=== PATIENT | male | born 1970 | race Caucasian/White ===

== ENCOUNTER 2018-02-16 16:55 | Emergency (ER) | payer OTHER ==
[~2018-02-16] VITALS: Ht 180.3 cm; Wt 79.4 kg
[~2018-02-16 16:55] MED LIST: AZIT250 PO; Bactrim Ds Tab1 EACH PO; CODGUAEL PO; EPIN.3I IM; Epipen0.3 MG/0.3 IM; HYDACE5 PO; IBUP400 PO; IBUP800 PO; METPRE4DP PO; Norco 5-325 Ta1 EACH PO; Pepcid20 MG PO; Pepcid40 MG PO; Percocet 5-3251 EACH PO; Prednisone20 MG PO; Prednisone50 MG PO; Zithromax250 MG PO
[2018-02-16] MEDS ORDERED: CYCL10 PO (18:42)
[2018-02-16] MEDS ORDERED: Norco 5-325 Ta1 EACH PO (18:42)
[2018-02-16] MEDS ORDERED: IBUP600 PO (18:42)
== END 2018-02-16 18:55 | disposition home or self-care (01) ==
LOC: ER 16:55
DX: M54.32 Sciatica, left side (principal); Z91.030 Bee allergy status; Z87.891 Personal history of nicotine dependence
CPT/HCPCS: 73502; 96372; 99283-25; J1170; J1885

== ENCOUNTER 2018-06-14 14:22 | Emergency (ER) | payer OTHER ==
[~2018-06-14] VITALS: Ht 170.2 cm; Wt 77.1 kg
[~2018-06-14 14:22] MED LIST changes: +CYCL10 PO; +IBUP600 PO
== END 2018-06-14 17:28 | disposition home or self-care (01) ==
LOC: ER 14:22
DX: S81.832A Puncture wound without foreign body, left lower leg, initial encounter (principal); W22.8XXA Striking against or struck by other objects, initial encounter; Y99.0 Civilian activity done for income or pay; Z91.030 Bee allergy status; Z79.899 Other long term (current) drug therapy; Z87.891 Personal history of nicotine dependence
CPT/HCPCS: 12001; 73590; 76882; 99284-25; A9270-GY

== ENCOUNTER 2019-07-04 17:55 | Emergency (ER) | payer OTHER ==
[~2019-07-04] VITALS: Ht 180.3 cm; Wt 83.9 kg
[2019-07-04] MEDS ORDERED: IBUP400 PO (19:37)
[2019-07-04] MEDS ORDERED: Cephalexin500 MG PO (19:37)
== END 2019-07-04 19:58 | disposition home or self-care (01) ==
LOC: ER 17:55
DX: L03.012 Cellulitis of left finger (principal); Z91.030 Bee allergy status; Z87.891 Personal history of nicotine dependence
CPT/HCPCS: 73140; 96372-59; 99283-25; J0690

== ENCOUNTER 2019-09-23 01:29 | Emergency (ER) | payer OTHER ==
[~2019-09-23] VITALS: Ht 180.3 cm; Wt 77.1 kg
[~2019-09-23 01:29] MED LIST changes: +Cephalexin500 MG PO
[2019-09-23 01:51] LABS: BASOPHILS ABSOLUTE AUTO 0.03 K/mm3 (0.00-0.23); BASOPHILS PERCENT AUTO 0 % (0-2); EOSINOPHILS ABSOLUTE AUTO 0.11 K/mm3 (0.00-0.68); EOSINOPHILS PERCENT AUTO 2 % (0-6); Hematocrit 43.6 % (37.0-53.0); Hemoglobin 15.1 g/dL (13.5-17.5); IMMATURE GRAN ABSOLUTE AUTO 0.02 K/mm3 (0.00-0.10); IMMATURE GRAN PERCENT AUTO 0 % (0-1); LYMPHOCYTES ABSOLUTE AUTO 1.53 K/mm3 (0.84-5.20); LYMPHOCYTES PERCENT AUTO 22 % (21-46); MONOCYTES ABSOLUTE AUTO 0.64 K/mm3 (0.16-1.47); MONOCYTES PERCENT AUTO 9 % (4-13); Mean Corpuscular HGB 33.5 pg (26.0-34.0); Mean Corpuscular HGB Conc 34.6 g/dL (31.5-36.5); Mean Corpuscular Volume 97 fL (80-100); Mean Platelet Volume 10.7 fL (9.1-12.4); NEUTROPHILS PERCENT AUTO 67 % (41-73); Platelet Count 202 K/mm3 (150-400); RDW Coefficient Variation 13.6 % (11.7-14.2); RDW Standard Deviation 49.1 fL (35.1-46.3); Red Blood Cell Count 4.51 M/mm3 (4.30-5.90); White Blood Cell Count 7.13 K/mm3 (4.00-11.30)
[2019-09-23 02:10] LABS: Alanine Aminotransfer (ALT/SGP 60 U/L (12-78); Albumin, Blood 3.7 g/dL (3.4-5.0); Albumin/Globulin Ratio 0.9 (0.8-1.8); Alk Phos 92 U/L (50-136); Anion Gap 6 mmol/L (6-16); Aspartate Aminotrans (AST/SGOT 60 U/L (12-37); Bilirubin, Total 0.4 mg/dL (0.1-1.0); Blood Urea Nitrogen 15 mg/dL (8-24); Bun/Creatinine Ratio 16.7 (12.0-20.0); CO2, Blood 26 mmol/L (21-32); Calcium, Blood 8.6 mg/dL (8.5-10.1); Chloride, Blood 110 mmol/L (98-108); Globulin, Blood 4.3 g/dL (2.2-4.0); Glomerular Filtration Rate >60 (60-); Glucose, Blood 99 mg/dL (70-99); Potassium, Blood 4.4 mmol/L (3.5-5.5); Sodium, Blood 142 mmol/L (136-145); Troponin I <0.015 ng/mL (0.000-0.040)
[2019-09-23] MEDS ORDERED: IBUP600 PO (05:04)
== END 2019-09-23 05:11 | disposition home or self-care (01) ==
LOC: ER 01:29
PROVIDERS: Emergency Medicine
DX: R07.2 Precordial pain (principal); Z91.030 Bee allergy status; Z87.891 Personal history of nicotine dependence
CPT/HCPCS: 71046; 80053; 84484; 85025; 93005; 93010; 99285-25

== ENCOUNTER 2022-09-09 12:33 | Emergency (ER) | payer SELFPAY ==
[~2022-09-09] VITALS: Ht 180.3 cm; Wt 72.6 kg
[2022-09-09] MEDS ORDERED: EPIPEN0.3 MG/0.3 IM (12:56)
[2022-09-09 13:54] VITALS: BP 174/95
== END 2022-09-09 14:00 | disposition home or self-care (01) ==
LOC: ER 12:33
DX: T63.441A Toxic effect of venom of bees, accidental (unintentional), initial encounter (principal); L53.0 Toxic erythema; X58.XXXA Exposure to other specified factors, initial encounter; Z91.030 Bee allergy status
CPT/HCPCS: 99282; A9270; J7512

== ENCOUNTER 2022-12-27 16:07 | Emergency (ER) | payer OTHER ==
[~2022-12-27] VITALS: Ht 180.3 cm; Wt 74.8 kg
[~2022-12-27 16:07] MED LIST changes: +EPIPEN0.3 MG/0.3 IM
[2022-12-27 16:39] VITALS: BP 166/104
== END 2022-12-27 19:38 | disposition home or self-care (01) ==
LOC: ER 16:07
DX: M25.571 Pain in right ankle and joints of right foot (principal); W23.0XXA Caught, crushed, jammed, or pinched between moving objects, initial encounter; Y99.0 Civilian activity done for income or pay; Z91.030 Bee allergy status; Z79.899 Other long term (current) drug therapy
CPT/HCPCS: 73590; 73610; 99283-25

== ENCOUNTER 2025-01-08 19:03 | Emergency (ER) | payer OTHER ==
[~2025-01-08] VITALS: Ht 180.3 cm; Wt 77.1 kg
[2025-01-08 19:18] VITALS: BP 190/110
[2025-01-08] MEDS ORDERED: Ketorolac Tromethamine 30mg Vial IM ONE (19:25)
[2025-01-08] MEDS ORDERED: Trimethoprim/Sulfamethoxazole DS Tab PO ONE (21:45)
[2025-01-08] MEDS ORDERED: BACTRIM DS TAB1 EAC1 PO (21:51)
== END 2025-01-08 22:00 | disposition home or self-care (01) ==
LOC: ER 19:03
DX: S61.412A Laceration without foreign body of left hand, initial encounter (principal); W26.8XXA Contact with other sharp object(s), not elsewhere classified, initial encounter; Z91.030 Bee allergy status
CPT/HCPCS: 12002; 73120; 96372; 99283-25; A9270; J1885